=== PATIENT | female | born 1980 | race Caucasian/White ===

== ENCOUNTER 2024-12-08 13:33 | Emergency (ER) | payer BC, SELFPAY ==
[2024-12-08 13:47] VITALS: BP 118/89; PULSE 94; RESP 16; TEMP 36.1; O2SAT 98
--- NOTE | 2024-12-08 14:01 | ED_ITS ---
HPI - URI/Sore Throat General Chief Complaint: Upper Respiratory Infection Stated Complaint: SINUS CONGESTION Source: patient and RN notes reviewed Mode of arrival: ambulatory Limitations: no limitations History of Present Illness HPI Narrative: 44-year-old female presented for complaint of sinus pain for over 2 weeks. Endorses pressure in teeth in ears, and yellow nasal drainage. About 4 days into symptoms she was prescribed antibiotics, steroid, and albuterol inhaler. She says the albuterol causes her to cough. She completed azithromycin 12/02 and steroid 12/04. Denies significant improvement in symptoms. MD elicited complaint: cough Related Data Home Medications ?Medication ?Instructions ?Recorded ?Confirmed ?Last Taken ?Type albuterol sulfate 90 mcg/actuation inhalation 12/08/24 Unknown History aerosol inhaler amitriptyline 25 mg tablet mg 12/08/24 Unknown Histor y cyclobenzaprine 10 mg tablet mg 12/08/24 Unknown Hist ory duloxetine 60 mg capsule,delayed mg PO 12/08/24 Unkno wn History release hydrocodone 5 mg-acetaminophen 325 tablet 12/08/24 Un known History mg tablet Allergies Allergy/AdvReac Type Severity Reaction Status Date / Time codeine Allergy Severe Rash Verified 12/08/24 13:47 Review of Systems Review of Systems: CONSTITUTIONAL: Denies malaise, body aches, chills, sweats, fever EYES: Denies visual changes, redness, or discharge ENT: Reports rhinorrhea, congestion, sinus pain, denies otalgia, sore throat CARDIOVASCULAR: Denies chest pain, palpitations, edema RESPIRATORY: Reports cough, Denies dyspnea GASTROINTESTINAL: Denies abdominal pain, nausea, vomiting, diarrhea SKIN: Denies rash NEUROLOGIC: Denies headache Exam Narrative: GENERAL: mildly ll-appearing, nontoxic no acute distress. EYES: conjunctivae clear ENT: Mucous membranes moist. tenderness to frontal and maxillary Sinus. TM pearly elias with dull light reflex bilaterally; no tragal tenderness. NECK: Supple. No lymphadenopathy CHEST: Faint scattered wheezing. No respiratory distress, speaks in full sentences. HEART: Regular rate and rhythm. No murmur heard. SKIN: Warm, dry, no rash. NEURO: Alert and oriented x3. PSYCH: Normal mood and affect Course Course Emergency Course: Patient is aware of diagnosis, understands and agrees to treatment plan. Anticipatory guidance given. Patient agrees to follow-up as directed and is aware of reasons to seek care at the emergency department. Portions of this record may have been created with voice recognition software Level of Care: Express Care Visit Vital Signs Vital signs: Vital Signs Temperature 96.9 F L 12/08/24 13:47 Pulse Rate 94 12/08/24 13:47 Respiratory Rate 16 12/08/24 13:47 Blood Pressure 118/89 12/08/24 13:47 Pulse Oximetry 98 12/08/24 13:47 Temperature 96.9 F L 12/08/24 13:47 Pulse Rate 94 12/08/24 13:47 Respiratory Rate 16 12/08/24 13:47 Blood Pressure 118/89 12/08/24 13:47 Pulse Oximetry 98 12/08/24 13:47 reviewed MDM - URI/Sore Throat MDM Narrative Medical decision making narrative: Discussed physical exam findings consistent with sinusitis. Reviewed prescrip tions Advised supportive measures and signs/symptoms to go to the ER. Pt is appropriate for outpt treatment and f/u. Differential Diagnosis Differential diagnosis: Likely upper respiratory infection, sinusitis and viral infection Discharge Plan Discharge Clinical Impression: Sinusitis Patient Disposition: Home Condition: Stable Instructions: Antibiotic Form, Sinusitis (ED) Additional Instructions: Take antibiotic as directed Recommendations: Zyrtec-D (or Claritin/Nai), or Sudafed according to package directions over the counter Cough syrup may cause drowsiness; avoid driving or take it at night time. Tylenol 1000mg every 8 hours as needed for pain Rest, push fluids, and increase humidity of the air at home. Continue to use your previously prescribed inhaler Follow up with your primary care provider this week. Go to the ER for worsening symptoms or concerns. Patient Language: Japanese Prescriptions: New amoxicillin-pot clavulanate 875-125 mg tablet 1 tablet PO Q12H 7 Days Qty: 14 0RF No Action cyclobenzaprine 10 mg tablet hydrocodone-acetaminophen 5-325 mg tablet amitriptyline 25 mg tablet albuterol sulfate 90 mcg/actuation HFA aerosol inhaler INHALATION duloxetine 60 mg capsule,delayed release(DR/EC) PO Follow-up/Referrals: Jacy,Guillermo [Other] Time of Disposition: 14:09
== END 2024-12-08 14:16 | disposition home or self-care (01) ==
PROVIDERS: Emergency Provider Nurse Practitioner Family
DX: J32.9 Chronic sinusitis, unspecified (principal)
CPT/HCPCS: 99203; G0463